=== PATIENT | female | born 1980 | race African-American/Black ===

== ENCOUNTER 2016-10-07 07:11 | Emergency (ER) | payer BC, MEDICAID ==
[~2016-10-07] VITALS: Ht 162.6 cm; Wt 82.0 kg
[2016-10-07] MEDS ORDERED: ONDANSETRON HCL 4MG/2ML VIAL IV STA (08:16)
[2016-10-07] MEDS ORDERED: KETOROLAC 30MG/ML VIAL IV STA (08:16)
[2016-10-07 08:36] LABS: BASOPHILS % 0.6 % (0.0-2.0); EOSINOPHILS % 0.7 % (0.0-5.0); HEMATOCRIT. 41.8 % (36.0-48.0); HEMOGLOBIN. 13.5 g/dL (12.0-16.0); LYMPHOCYTES % 19.6 % (20.0-50.0); MEAN CORPUSCULAR VOLUME 89.5 fL (81.0-99.0); MEAN PLATELET VOLUME 10.4 fl (7.4-10.4); MONOCYTES % 5.4 % (2.0-8.0); NEUTROPHILS % 73.7 % (40.0-76.0); PLATELET 177 x1000/uL (130-400); RED BLOOD CELL COUNT 4.67 mill/uL (4.2-5.4); RED CELL DISTRIBUTION WIDTH 13.9 % (11.6-14.6)
[2016-10-07 08:47] LABS: CARBON DIOXIDE 20 mEq/L (21-32); CHLORIDE 109 mEq/L (98-107)
[2016-10-07] MEDS ORDERED: MORPHINE SULFATE 4 MG/ML CPJ (NOT FOR IM USE) IV ONE ×2 (09:15→13:15)
[2016-10-07] MEDS ORDERED: METOCLOPRAMIDE HCL 10MG/2ML VIAL IV ONE (09:15)
[2016-10-07] MEDS ORDERED: ONDANSETRON HCL 4MG/2ML VIAL IV ONE (13:15)
[2016-10-07 13:35] VITALS: BP 128/72
== END 2016-10-07 13:39 | disposition home or self-care (01) ==
LOC: ER 07:42
DX: R10.32 Left lower quadrant pain (principal); R11.2 Nausea with vomiting, unspecified; F12.10 Cannabis abuse, uncomplicated; Z87.442 Personal history of urinary calculi; J45.909 Unspecified asthma, uncomplicated; Z88.8 Allergy status to other drugs, medicaments and biological substances
CPT/HCPCS: 36415; 74176; 76830; 76856; 80053; 83690; 85025; 93976; 96374; 96375; 96376; 99285; J1885; J2270; J2405; J2765; Z7610